=== PATIENT | female | born 2000 | race African-American/Black ===

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

== ENCOUNTER 2020-03-15 19:34 | Emergency (ER) | payer OTHER ==
[2020-03-15] MEDS ORDERED: Metoclopramide HCl 10 MG TAB ONE (21:33)
[2020-03-16 12:42] LABS: SARS-CoV-2 MS2 Positive; SARS-CoV-2 N Gene Negative; SARS-CoV-2 S Gene Negative; SARS-CoV-2 by NAA Not Detected (NotDetected); SARS-CoV-2 orf1ab Negative
== END 2020-03-15 22:26 | disposition home or self-care (01) ==
LOC: ERS 19:34
DX: H60.503 Unspecified acute noninfective otitis externa, bilateral (principal); R51 Headache; F98.8 Other specified behavioral and emotional disorders with onset usually occurring in childhood and adolescence; Z20.828 Contact with and (suspected) exposure to other viral communicable diseases
CPT/HCPCS: 87635; 99284; U0003

== ENCOUNTER 2023-12-24 11:30 | Emergency (ER) | payer OTHER, SELFPAY ==
[2023-12-24] MEDS ORDERED: Acetaminophen 500 MG TAB ONE (11:57)
[2023-12-24] MEDS ORDERED: Boostrix 0.5 ML (Tdap) VIAL (>/=7 yrs of age) ONE (12:02)
== END 2023-12-24 14:15 | disposition home or self-care (01) ==
LOC: ERS 11:30
DX: S62.615A Displaced fracture of proximal phalanx of left ring finger, initial encounter for closed fracture (principal); S40.211A Abrasion of right shoulder, initial encounter; S20.411A Abrasion of right back wall of thorax, initial encounter; Z23 Encounter for immunization; Y04.0XXA Assault by unarmed brawl or fight, initial encounter
CPT/HCPCS: 76815; 90471; 90715

== ENCOUNTER 2024-01-04 17:17 | Emergency (ER) | payer OTHER, SELFPAY | END 2024-01-04 18:10 | disposition home or self-care (01) | LOC: ERS 17:17 | DX: S62.615D Displaced fracture of proximal phalanx of left ring finger, subsequent encounter for fracture with routine healing (principal); X58.XXXD Exposure to other specified factors, subsequent encounter | CPT/HCPCS: 99282 ==

== ENCOUNTER 2024-03-30 23:44 | Emergency (ER) | payer MEDICAID | END 2024-03-31 01:17 | disposition home or self-care (01) | LOC: ERS 23:44 | DX: O99.891 Other specified diseases and conditions complicating pregnancy (principal); R06.02 Shortness of breath; R06.4 Hyperventilation; Z3A.26 26 weeks gestation of pregnancy | CPT/HCPCS: 99284 ==

== ENCOUNTER 2025-06-01 00:08 | Emergency (ER) | payer MEDICAID, OTHER ==
[2025-06-01 00:55] LABS: ALT (SGPT) 19 U/L (Less than 34); AST (SGOT) 20 U/L (11-34); Albumin 4.1 g/dL (3.1-4.5); Alkaline Phosphatase 68 U/L (40-110); Anion Gap 12 mmol/L (10-20); BUN (Urea Nitrogen) 8 mg/dL (7.0-18.7); Bilirubin, Total 0.4 mg/dL (0.3-1.2); Calc. Creatinine Clearance 0 mL/min (70-130); Calcium 8.9 mg/dL (7.8-10.44); Carbon Dioxide 23 mmol/L (22-29); Chloride 109 mmol/L (98-107); Globulin 3.3 g/dL (2.4-3.5); Glucose 114 mg/dL (70-105); Lipase 22 U/L (8-78); Potassium 3.4 mmol/L (3.5-5.1); Sodium 141 mmol/L (136-145)
[2025-06-01 00:56] LABS: BHCG - Serum Negative (NEGATIVE)
[2025-06-01 00:57] LABS: Pregs Control Background? CLEAR/WHITE (CLR/WHITE); Pregs Control Bar Appear? YES (CONTROL BAR)
[2025-06-01 01:06] LABS: #Basophils Less than 0.03 10x3/uL (0.0-0.2); #Eosinophils 0.06 10x3/uL (0.0-0.7); #Monocytes 0.67 10x3/uL (0.11-0.59); #Neutrophils 9.04 10x3/uL (1.40-6.50); %Basophils 0.1 % (0.0-1.0); %Eosinophils 0.6 % (0.0-10.0); %Lymphocytes 5.9 % (21.0-51.0); %Monocytes 6.4 % (0.0-10.0); %Neutrophils 86.7 % (42.0-75.0); Hematocrit 37.9 % (36.0-47.0); Hemoglobin 12.3 g/dL (12.0-16.0); Magnesium 1.7 mg/dL (1.6-2.6); Mean Corpuscular Hemoglobin 24.3 pg (27.0-31.0); Mean Corpuscular Volume 74.9 fL (78.0-98.0); Platelet Count 248 10x3/uL (130-400); Red Blood Cell (RBC) Count 5.06 mill/uL (4.20-5.40); White Blood Cell (WBC) Count 10.42 10x3/uL (4.8-10.8)
[2025-06-01] MEDS ORDERED: Potassium Bicarbonate/Cit Ac 20 MEQ TAB ONE (01:32)
== END 2025-06-01 02:41 | disposition home or self-care (01) ==
LOC: ERS 00:08
DX: R11.2 Nausea with vomiting, unspecified (principal)
CPT/HCPCS: 80053; 83690; 83735; 84703; 85025; 96360